=== PATIENT | male | born 1965 | race American Indian/Alaskan Native ===

== ENCOUNTER 2016-07-22 09:49 | Outpatient (RCR) | payer OTHER, BC | END 2016-10-20 09:45 | disposition home or self-care (01) | LOC: PT | DX: Z47.89 Encounter for other orthopedic aftercare (principal); S46.211D Strain of muscle, fascia and tendon of other parts of biceps, right arm, subsequent encounter; X50.0XXD Overexertion from strenuous movement or load, subsequent encounter ==

== ENCOUNTER → 2016-12-18 | Outpatient (REF) | LOC: LAB 16:51 → EDSTATUS 16:54 | DX: R53.83 Other fatigue (principal); E03.9 Hypothyroidism, unspecified; K50.90 Crohn's disease, unspecified, without complications; K90.0 Celiac disease; I10 Essential (primary) hypertension; K21.9 Gastro-esophageal reflux disease without esophagitis ==

== ENCOUNTER → 2016-12-21 | Outpatient (REF) | LOC: LAB 16:29 | DX: R10.9 Unspecified abdominal pain (principal) ==

== ENCOUNTER → 2017-01-19 | Outpatient (REF) | LOC: LAB 16:05 | DX: K50.10 Crohn's disease of large intestine without complications (principal); K90.0 Celiac disease; R79.89 Other specified abnormal findings of blood chemistry; D58.2 Other hemoglobinopathies; R19.7 Diarrhea, unspecified ==

== ENCOUNTER 2017-03-18 07:58 | Outpatient (RCR) | payer BC | END 2017-03-18 09:00 | disposition home or self-care (01) | LOC: PT 07:58 | DX: G89.4 Chronic pain syndrome (principal) ==

== ENCOUNTER → 2017-10-06 | Outpatient (CLI) | payer BC | LOC: RAD 10:54 | DX: M25.812 Other specified joint disorders, left shoulder (principal) ==

== ENCOUNTER 2017-10-28 16:00 | Outpatient (RCR) | payer BC | END 2017-10-28 16:30 | disposition home or self-care (01) | LOC: PT 16:00 | DX: S46.012D Strain of muscle(s) and tendon(s) of the rotator cuff of left shoulder, subsequent encounter (principal) ==

== ENCOUNTER → 2019-04-27 | Outpatient (CLI) | payer BC ==
[2019-04-27 15:54] LABS: HEMATOCRIT 46.1 % (42.0-52.0); MEAN CELL VOLUME 101 fl (78-100); MEAN CORPUSCULAR HEMOGLOBIN 33 pg (27-31); MEAN CORPUSCULAR HGB CONC 33 g/dL (33-37); MEAN PLATELET VOLUME 10.2 fl (7.4-10.4); PLATELET COUNT 383 K/mm3 (130-400); RED BLOOD COUNT 4.55 M/mm3 (4.20-5.60); WHITE BLOOD COUNT 9.5 K/mm3 (4.8-10.8)
[2019-04-27 15:56] LABS: ALBUMIN 4.5 g/dL (3.5-5.0)
[2019-04-27 15:58] LABS: CALCIUM 9.1 mg/dL (8.3-10.5)
[2019-04-27 15:59] LABS: TOTAL PROTEIN 6.7 g/dL (6.4-8.3)
[2019-04-27 16:01] LABS: TOTAL BILIRUBIN 0.9 mg/dL (0.2-1.2)
[2019-04-27 16:35] LABS: URINE APPEARANCE CLEAR; URINE BILIRUBIN NEGATIVE (NEGATIVE); URINE BLOOD NEGATIVE (NEGATIVE); URINE COLOR YELLOW; URINE GLUCOSE NEGATIVE (NEGATIVE); URINE KETONE NEGATIVE (NEGATIVE); URINE LEUKOCYTE ESTERASE NEGATIVE (NEGATIVE); URINE NITRATE NEGATIVE (NEGATIVE); URINE PROTEIN(semi-quant) NEGATIVE (NEGATIVE); URINE UROBILINOGEN NORMAL (NORMAL); URINE WBC 0-1 /hpf (0-3)
[2019-04-27 16:36] LABS: URINE MUCUS PRESENT (NOT PRESENT)
[2019-04-27 17:20] LABS: ERYTHROCYTE SEDIMENTATION RATE 1 mm/hr (0-20)
[2019-04-27 17:27] LABS: LYMPHOCYTE 19 % (20-51); MONOCYTE 15 % (3-10); NEUTROPHILS 65 % (42-75)
== END ==
LOC: LAB 15:38
PROVIDERS: Family Medicine
DX: R10.11 Right upper quadrant pain (principal); Z87.19 Personal history of other diseases of the digestive system

== ENCOUNTER → 2019-04-28 | Outpatient (CLI) | payer BC | LOC: RAD 09:03 | DX: E27.9 Disorder of adrenal gland, unspecified (principal) | CPT/HCPCS: Q9967 ==

== ENCOUNTER → 2019-05-04 | Day surgery (SDC) | payer BC | LOC: MSO 09:56 | DX: K50.10 Crohn's disease of large intestine without complications (principal); K21.9 Gastro-esophageal reflux disease without esophagitis; K92.1 Melena; K90.0 Celiac disease; Z88.8 Allergy status to other drugs, medicaments and biological substances; E03.9 Hypothyroidism, unspecified; G89.29 Other chronic pain; I10 Essential (primary) hypertension; E78.2 Mixed hyperlipidemia; E66.9 Obesity, unspecified; Z68.27 Body mass index [BMI] 27.0-27.9, adult; G47.33 Obstructive sleep apnea (adult) (pediatric); M19.90 Unspecified osteoarthritis, unspecified site; F32.9 Major depressive disorder, single episode, unspecified; G20 Parkinson's disease | CPT/HCPCS: 00813; J2704; J3010; J7120 ==

== ENCOUNTER → 2019-05-30 | Outpatient (CLI) | payer BC | LOC: LAB 11:06 | DX: K90.0 Celiac disease (principal) ==

== ENCOUNTER → 2019-06-13 | Outpatient (CLI) | payer BC | LOC: LAB 06:52 | DX: I10 Essential (primary) hypertension (principal); E27.8 Other specified disorders of adrenal gland; K90.0 Celiac disease ==

== ENCOUNTER → 2019-07-20 | Outpatient (CLI) | payer BC | LOC: RAD 07-19 15:00 | DX: D44.11 Neoplasm of uncertain behavior of right adrenal gland (principal) | CPT/HCPCS: A9585 ==

== ENCOUNTER → 2020-01-27 | Outpatient (CLI) | payer BC ==
[2020-01-27 11:15] LABS: HEMATOCRIT 46.2 % (42.0-52.0); HEMOGLOBIN 15.6 g/dL (13.5-18.0); MEAN CELL VOLUME 102 fl (78-100); MEAN CORPUSCULAR HEMOGLOBIN 35 pg (27-31); MEAN CORPUSCULAR HGB CONC 34 g/dL (33-37); MEAN PLATELET VOLUME 9.6 fl (7.4-10.4); PLATELET COUNT 293 K/mm3 (130-400); RED BLOOD COUNT 4.51 M/mm3 (4.20-5.60); RED CELL DISTRIBUTION WIDTH 13.9 % (11.5-14.5); WHITE BLOOD COUNT 7.3 K/mm3 (4.8-10.8)
[2020-01-27 11:20] LABS: ALBUMIN 4.3 g/dL (3.5-5.0)
[2020-01-27 11:21] LABS: POTASSIUM 4.6 mmol/L (3.5-5.1)
[2020-01-27 11:22] LABS: CALCIUM 8.6 mg/dL (8.3-10.5)
[2020-01-27 11:23] LABS: LYMPHOCYTE 22 % (20-51); MONOCYTE 18 % (3-10); NEUTROPHILS 55 % (42-75); TOTAL PROTEIN 6.2 g/dL (6.4-8.3)
[2020-01-27 11:25] LABS: TOTAL BILIRUBIN 0.5 mg/dL (0.2-1.2)
== END ==
LOC: LAB 11:00
PROVIDERS: Nurse Practitioner
DX: Z51.81 Encounter for therapeutic drug level monitoring (principal); Z79.899 Other long term (current) drug therapy

== ENCOUNTER 2022-07-01 10:51 | Outpatient (RCR) | payer OTHER | END 2022-07-31 | LOC: OT | DX: M79.601 Pain in right arm (principal) ==

== ENCOUNTER → 2023-11-18 | Outpatient (CLI) | payer OTHER ==
[~2023-11-18] VITALS: Ht 175.3 cm; Wt 109.0 kg
[~2023-11-18] MED LIST: AZULFIDINE500 M1; DAPSONE25 M1; DEPAKOTE; LISINOPRIL20 MG PO; NS 500 ML IV SCH; SIMVASTATIN5 M1
[2023-11-18 13:12] VITALS: BP 133/86
[2023-11-18 13:35] LABS: HEMATOCRIT 52.1 % (42.0-52.0); HEMOGLOBIN 17.7 g/dL (13.5-18.0)
== END ==
LOC: AMSURD 11:37
PROVIDERS: Nurse Practitioner
DX: I73.81 Erythromelalgia (principal)
CPT/HCPCS: J7040

== ENCOUNTER 2023-12-05 15:12 | Emergency (ER) | payer OTHER ==
[~2023-12-05] VITALS: Wt 108.9 kg
[~2023-12-05 15:12] MED LIST changes: -NS 500 ML IV SCH
[2023-12-05 16:01] LABS: BASO # 0.03 K/mm3 (0.02-0.10); EOS # 0.11 K/mm3 (0.04-0.40); EOS % 1.2 % (0.0-4.0); HEMATOCRIT 49.7 % (42.0-52.0); HEMOGLOBIN 16.4 g/dL (13.5-18.0); LYMPH# 2.54 K/mm3 (1.50-4.00); MEAN CELL VOLUME 99 fl (78-100); MEAN CORPUSCULAR HEMOGLOBIN 33 pg (27-31); MEAN CORPUSCULAR HGB CONC 33 g/dL (33-37); MEAN PLATELET VOLUME 9.1 fl (7.4-10.4); MONO # 1.05 K/mm3 (0.20-0.80); NEU # 5.47 K/mm3 (1.40-6.50); PLATELET COUNT 300 K/mm3 (130-400); RED BLOOD COUNT 5.03 M/mm3 (4.20-5.60); RED CELL DISTRIBUTION WIDTH 14.2 % (11.5-14.5); WHITE BLOOD COUNT 9.3 K/mm3 (4.8-10.8)
[2023-12-05 16:08] LABS: ALBUMIN 4.5 g/dL (3.5-5.0); SODIUM 140 mmol/L (136-145)
[2023-12-05 16:09] LABS: CALCIUM 9.8 mg/dL (8.3-10.5)
[2023-12-05 16:11] LABS: GLUCOSE 81 mg/dL (75-110); TOTAL PROTEIN 6.9 g/dL (6.4-8.3)
[2023-12-05 16:12] LABS: CARBON DIOXIDE 20 mmol/L (22-29); TOTAL BILIRUBIN 0.8 mg/dL (0.2-1.2)
[2023-12-05] MEDS ORDERED: HYDROXYZINE HCL25 M1 PO (16:13)
[2023-12-05 16:16] LABS: AST-SGOT 33 U/L (5-34)
[2023-12-05 16:17] LABS: ALT/SGPT 41 U/L (0-55)
[2023-12-05 16:44] LABS: D-DIMER 1.23 mg/L FEU (0.15-0.50); TROPONIN-I < 0.030 ng/mL (0.00-0.033)
[2023-12-05] MEDS ORDERED: Iohexol 350 - 100 ML VIAL IV ONE (16:52)
[2023-12-05 18:27] VITALS: BP 142/89
== END 2023-12-05 18:27 | disposition home or self-care (01) ==
LOC: ED 15:12
PROVIDERS: Physician Assistant
DX: R55 Syncope and collapse (principal)
CPT/HCPCS: Q9967